=== PATIENT | female | born 1950 | race Hispanic/Latino ===

== ENCOUNTER 2022-05-14 11:07 | Outpatient (CLI) | payer MEDICARE | END 2022-05-14 11:08 | disposition home or self-care (01) | LOC: NAV RAD 11:07 | PROVIDERS: ATTEND Family Medicine | DX: M79.622 Pain in left upper arm (principal) ==

== ENCOUNTER 2022-12-30 15:04 | Outpatient (CLI) | payer MEDICARE, MEDICAID | END 2022-12-30 15:05 | disposition home or self-care (01) | LOC: NAV RAD 15:04 | PROVIDERS: ATTEND Family Medicine | DX: M25.561 Pain in right knee (principal); M17.11 Unilateral primary osteoarthritis, right knee ==

== ENCOUNTER 2024-08-03 11:51 | Outpatient (CLI) | payer MEDICARE, MEDICAID | END 2024-08-03 11:52 | disposition home or self-care (01) | LOC: NAV RAD 11:51 | PROVIDERS: ATTEND Nurse Practitioner Family | DX: M25.552 Pain in left hip (principal) ==